=== PATIENT | male | born 1950 | race African-American/Black ===

== ENCOUNTER 2021-12-19 09:53 | Inpatient (IN) | payer MEDICARE, MEDICAID ==
[~2021-12-19] VITALS: Ht 188 cm; Wt 143.8 kg
[~2021-12-19 09:53] MED LIST: ATOR10TA69 PO; GABA-290 PO; GLIP5TAB12 MT; LOSA1TAB37 PO; MOBI7 MT; OMEP20CA14 PO; PIOG30TA70 PO
[2021-12-19] MEDS ORDERED: ONDANSETRON HCL 4MG/2ML INJ IV STA (10:29)
[2021-12-19] MEDS ORDERED: MORPHINE SULFATE 4 MG/ML CPJ (NOT FOR IM USE) IV STA (10:29)
[2021-12-19 11:33] LABS: BASOPHILS % 0.6 % (0.0-2.0); EOSINOPHILS % 1.4 % (0.0-5.0); LYMPHOCYTES % 17.4 % (20.0-50.0); MEAN CORPUSCULAR HEMOGLOBIN 30.8 pg (28.0-32.0); MEAN CORPUSCULAR VOLUME 92.1 fL (80.0-94.0); MEAN PLATELET VOLUME 7.9 fl (7.4-10.4); MONOCYTES % 9.8 % (2.0-8.0); NEUTROPHILS % 70.8 % (40.0-76.0); PLATELET 282 x1000/uL (130-400); RED BLOOD CELL COUNT 4.88 mill/uL (4.7-6.1); RED CELL DISTRIBUTION WIDTH 14.1 % (11.6-14.6)
[2021-12-19 11:44] LABS: CHLORIDE 99 mEq/L (98-107)
[2021-12-19 12:05] LABS: CLARITY URINE CLEAR (CLEAR); COLOR URINE YELLOW (YELLOW); KETONES URINE NEGATIVE (NEGATIVE); LEUKOCYTE ESTERASE URINE 1+ (NEGATIVE); NITRITE URINE NEGATIVE (NEGATIVE); OCCULT BLOOD URINE NEGATIVE (NEGATIVE); PH URINE 7.5 (4.5-8.0); PROTEIN URINE NEGATIVE (NEGATIVE)
[2021-12-19] MEDS ORDERED: MORPHINE SULFATE 4 MG/ML CPJ (NOT FOR IM USE) IV ONE (14:00)
[2021-12-19] MEDS ORDERED: ACETAMINOPHEN 325MG TABLET PO PRN (18:30)
[2021-12-19] MEDS ORDERED: ONDANSETRON HCL 4MG/2ML INJ IV PRN (18:30)
[2021-12-19] MEDS ORDERED: TRAMADOL 50MG TABLET PO PRN (18:30)
[2021-12-19] MEDS ORDERED: MAGNESIUM/ALUMINUM HYDROXIDE/SIMETHICONE 30ML UDC PO PRN (18:30)
[2021-12-19] MEDS ORDERED: DOCUSATE SODIUM 100MG CAPSULE PO PRN (18:30)
[2021-12-19] MEDS ORDERED: GUAIFENESIN 200MG/10ML SUGAR FREE UDC PO PRN (18:30)
[2021-12-19] MEDS: PANTOPRAZOLE SODIUM 40 MG/VIAL IV SCH (19:05)
[2021-12-19] MEDS: DEXT 5%/0.45% NACL 1000ML 1,000 ML IV SCH (19:06)
[2021-12-19 21:15] VITALS: BP 104/92
[2021-12-19] MEDS ORDERED: SODIUM POLYSTYRENE SULFONATE 15 G/60 ML BOT PO NR (23:00)
[2021-12-19] MEDS ORDERED: NALOXONE HCL 0.4MG/ML VIAL IV PRN (23:15)
[2021-12-19] MEDS: ZOLPIDEM TARTRATE 5MG TABLET PO PRN (23:57)
[2021-12-19] MEDS: ENOXAPARIN 40MG/0.4ML SYR SUBCUT SCH (23:58)
[2021-12-20] VITALS: BP_SYST 104; BP_SYST 115; BP_DIAS 92; BP_DIAS 93
[2021-12-20 04:00] VITALS: BP 117/75
[2021-12-20] MEDS: HYDROMORPHONE HCL/PF 2MG/ML CPJ IV PRN ×3 (04:55→15:06)
[2021-12-20] MEDS ORDERED: PNEUMOCOCCAL 23-VAL P-SAC VAC 0.5 ML IM ONE (05:30)
[2021-12-20 07:02] LABS: BASOPHILS % 1.2 % (0.0-2.0); EOSINOPHILS % 4.2 % (0.0-5.0); HEMATOCRIT. 41.6 % (42.0-52.0); HEMOGLOBIN. 13.8 g/dL (14.0-18.0); LYMPHOCYTES % 21.3 % (20.0-50.0); MEAN CORPUSCULAR HEMOGLOBIN 30.8 pg (28.0-32.0); MEAN CORPUSCULAR VOLUME 92.4 fL (80.0-94.0); MEAN PLATELET VOLUME 7.9 fl (7.4-10.4); NEUTROPHILS % 60.3 % (40.0-76.0); PLATELET 249 x1000/uL (130-400); RED CELL DISTRIBUTION WIDTH 13.7 % (11.6-14.6)
[2021-12-20 07:03] LABS: CHLORIDE 98 mEq/L (98-107)
[2021-12-20 07:14] LABS: HDL CHOLESTEROL 46 mg/dL (40-59); LDL CHOLESTEROL 39 mg/dL (5-100)
[2021-12-20] MEDS: BLOOD SUGAR DIAGNOSTIC STRIP TEST SCH ×4 (07:27→21:42)
[2021-12-20 08:00] VITALS: BP 133/79
[2021-12-20] MEDS ORDERED: POTASSIUM CHLORIDE 20MEQ TABLET SR PO NR (08:15)
[2021-12-20] MEDS: PANTOPRAZOLE SODIUM 40 MG/VIAL IV SCH (08:37)
[2021-12-20] MEDS: ENOXAPARIN 40MG/0.4ML SYR SUBCUT SCH ×2 (08:38→21:42)
[2021-12-20] MEDS: AMLODIPINE 10MG TABLET PO SCH (08:39)
[2021-12-20] MEDS: DEXT 5%/0.45% NACL 1000ML 1,000 ML IV SCH (11:21)
[2021-12-20 12:00] VITALS: BP 125/77
[2021-12-20 16:00] VITALS: BP 109/71
[2021-12-20 20:00] VITALS: BP 129/81
[2021-12-20] MEDS: ZOLPIDEM TARTRATE 5MG TABLET PO PRN (21:42)
[2021-12-21] VITALS: BP 121/84
[2021-12-21] MEDS: DEXT 5%/0.45% NACL 1000ML 1,000 ML IV SCH (03:37)
[2021-12-21 04:00] VITALS: BP 103/64
[2021-12-21] MEDS: HYDROMORPHONE HCL/PF 2MG/ML CPJ IV PRN ×2 (06:24→11:42)
[2021-12-21 06:29] LABS: BASOPHILS % 0.4 % (0.0-2.0); EOSINOPHILS % 2.8 % (0.0-5.0); HEMATOCRIT. 42.4 % (42.0-52.0); HEMOGLOBIN. 14.1 g/dL (14.0-18.0); LYMPHOCYTES % 14.8 % (20.0-50.0); MEAN CORPUSCULAR VOLUME 92.8 fL (80.0-94.0); MONOCYTES % 11.1 % (2.0-8.0); NEUTROPHILS % 70.9 % (40.0-76.0); PLATELET 225 x1000/uL (130-400); RED BLOOD CELL COUNT 4.57 mill/uL (4.7-6.1); RED CELL DISTRIBUTION WIDTH 13.7 % (11.6-14.6)
[2021-12-21 06:32] LABS: CHLORIDE 100 mEq/L (98-107)
[2021-12-21] MEDS: BLOOD SUGAR DIAGNOSTIC STRIP TEST SCH ×2 (07:22→13:03)
[2021-12-21 08:08] VITALS: BP 143/84
[2021-12-21] MEDS: ENOXAPARIN 40MG/0.4ML SYR SUBCUT SCH (09:41)
[2021-12-21] MEDS: PANTOPRAZOLE SODIUM 40 MG/VIAL IV SCH (09:41)
[2021-12-21] MEDS: AMLODIPINE 10MG TABLET PO SCH (09:41)
[2021-12-21 12:00] VITALS: BP 139/67
[2021-12-21] MEDS ORDERED: DEXTROSE 50% WATER 50ML SYRINGE IV PRN (13:15)
[2021-12-21 14:39] VITALS: BP 130/83
[2021-12-21] MEDS ORDERED: INSULIN LISPRO 100 UNITS/ML SUBCUT SCH (17:50)
== END 2021-12-21 15:45 | disposition home health service (06) | DRG 445 ==
LOC: ER 09:53 → 6WST 17:07 → EDBEDREQTM 17:32 → EDBEDREQ 17:32 → ENRESERV 20:03
PROVIDERS: ADMIT Hospitalist; ATTEND Hospitalist
DX: K80.20 Calculus of gallbladder without cholecystitis without obstruction (principal); I69.354 Hemiplegia and hemiparesis following cerebral infarction affecting left non-dominant side; E11.9 Type 2 diabetes mellitus without complications; I25.10 Atherosclerotic heart disease of native coronary artery without angina pectoris; I48.91 Unspecified atrial fibrillation; E78.5 Hyperlipidemia, unspecified; I10 Essential (primary) hypertension; E78.00 Pure hypercholesterolemia, unspecified; Z90.49 Acquired absence of other specified parts of digestive tract; Z79.899 Other long term (current) drug therapy; Z87.442 Personal history of urinary calculi; Z86.73 Personal history of transient ischemic attack (TIA), and cerebral infarction without residual deficits; Z20.822 Contact with and (suspected) exposure to COVID-19; Z79.84 Long term (current) use of oral hypoglycemic drugs
CPT/HCPCS: 36415; 71045; 74176; 76705; 80048; 80053; 80061; 81003; 82962; 83605; 83880; 84484; 85025; 87426; 93005; 93970; 99285; C9113; J1170; J1650; J2270; J2405

== ENCOUNTER 2022-01-30 08:12 | Inpatient (IN) | payer MEDICARE, MEDICAID ==
[~2022-01-30] VITALS: Ht 185.4 cm; Wt 127.1 kg
[2022-01-30 09:37] LABS: BASOPHILS % 0.9 % (0.0-2.0); EOSINOPHILS % 1.8 % (0.0-5.0); HEMATOCRIT. 42.3 % (42.0-52.0); HEMOGLOBIN. 13.7 g/dL (14.0-18.0); LYMPHOCYTES % 14.1 % (20.0-50.0); MEAN CORPUSCULAR HEMOGLOBIN 30.7 pg (28.0-32.0); MEAN CORPUSCULAR VOLUME 94.7 fL (80.0-94.0); MEAN PLATELET VOLUME 7.7 fl (7.4-10.4); MONOCYTES % 12.2 % (2.0-8.0); PLATELET 238 x1000/uL (130-400); RED BLOOD CELL COUNT 4.47 mill/uL (4.7-6.1); RED CELL DISTRIBUTION WIDTH 15.1 % (11.6-14.6)
[2022-01-30 09:38] LABS: CHLORIDE 102 mEq/L (98-107)
[2022-01-30 09:56] LABS: CLARITY URINE CLEAR (CLEAR); COLOR URINE DARK YELLOW (YELLOW); KETONES URINE TRACE (NEGATIVE); LEUKOCYTE ESTERASE URINE 3+ (NEGATIVE); NITRITE URINE NEGATIVE (NEGATIVE); OCCULT BLOOD URINE NEGATIVE (NEGATIVE); PROTEIN URINE TRACE (NEGATIVE); SPECIFIC GRAVITY URINE 1.023 (1.005-1.030)
[2022-01-30] MEDS ORDERED: METRONIDAZOLE 500 MG PREMIX 100 ML IV ONE (10:45)
[2022-01-30] MEDS ORDERED: MORPHINE SULFATE 4 MG/ML CPJ (NOT FOR IM USE) IV ONE (10:45)
[2022-01-30] MEDS ORDERED: LEVOFLOXACIN 750MG PREMIX 150 ML IV ONE (10:45)
[2022-01-30 10:57] LABS: INR 1.1; PROTHROMBIN TIME 11.4 sec (9.6-11.0)
[2022-01-30] MEDS ORDERED: LORAZEPAM 0.5MG TABLET PO PRN (14:00)
[2022-01-30] MEDS ORDERED: DOCUSATE SODIUM 100MG CAPSULE PO PRN (14:00)
[2022-01-30] MEDS ORDERED: IPRATROPIUM/ALBUTEROL 0.5-3(2.5)MG/3ML NEB HHN PRN (14:00)
[2022-01-30] MEDS ORDERED: ACETAMINOPHEN 325MG TABLET PO PRN ×2 (14:00)
[2022-01-30] MEDS ORDERED: GUAIFENESIN 200MG/10ML SUGAR FREE UDC PO PRN (14:00)
[2022-01-30] MEDS ORDERED: ONDANSETRON HCL 4MG/2ML INJ IV PRN (14:00)
[2022-01-30] MEDS ORDERED: NALOXONE HCL 0.4MG/ML VIAL IV PRN (14:15)
[2022-01-30] MEDS ORDERED: CEFTRIAXONE 1 G PREMIX 50 ML IV SCH (16:00)
[2022-01-30] MEDS: HYDROCODONE/ACETAMINOPHEN 5/325MG TABLET PO PRN (17:29)
[2022-01-30] MEDS: ENOXAPARIN 30MG/0.3ML SYR SUBCUT SCH (17:29)
[2022-01-30] MEDS: PANTOPRAZOLE SODIUM 40 MG/VIAL IV SCH (17:35)
[2022-01-30 18:59] LABS: TOTAL IRON BINDING CAPACITY 384 ug/dL (250-450)
[2022-01-30 19:27] LABS: FOLIC ACID (FOLATE) SERUM >20 ng/mL ng/mL (>5.38); VITAMIN B12 SERUM 330 pg/mL (211-911)
[2022-01-30 19:41] LABS: FERRITIN 106 ng/mL (22-322)
[2022-01-30 23:51] VITALS: BP 108/73
[2022-01-31] VITALS: BP 101/67
[2022-01-31 04:00] VITALS: BP 108/73
[2022-01-31] MEDS: ENOXAPARIN 30MG/0.3ML SYR SUBCUT SCH ×2 (06:59→18:29)
[2022-01-31 07:23] LABS: CHLORIDE 101 mEq/L (98-107)
[2022-01-31 07:40] LABS: CREATINE KINASE 111 IU/L (39-308); HDL CHOLESTEROL 55 mg/dL (40-59); LDL CHOLESTEROL 59 mg/dL (5-100)
[2022-01-31 07:47] LABS: BASOPHILS % 0.8 % (0.0-2.0); EOSINOPHILS % 2.6 % (0.0-5.0); HEMATOCRIT. 41.5 % (42.0-52.0); LYMPHOCYTES % 18.9 % (20.0-50.0); MEAN CORPUSCULAR HEMOGLOBIN 31.4 pg (28.0-32.0); MEAN CORPUSCULAR VOLUME 93.3 fL (80.0-94.0); MEAN PLATELET VOLUME 7.8 fl (7.4-10.4); MONOCYTES % 12.2 % (2.0-8.0); NEUTROPHILS % 65.5 % (40.0-76.0); PLATELET 240 x1000/uL (130-400); RED BLOOD CELL COUNT 4.45 mill/uL (4.7-6.1); RED CELL DISTRIBUTION WIDTH 14.8 % (11.6-14.6)
[2022-01-31 08:00] VITALS: BP 112/67
[2022-01-31] MEDS: PANTOPRAZOLE SODIUM 40 MG/VIAL IV SCH (10:18)
[2022-01-31] MEDS: HYDROCODONE/ACETAMINOPHEN 5/325MG TABLET PO PRN (10:18)
[2022-01-31 12:00] VITALS: BP 116/70
[2022-01-31] MEDS ORDERED: LEVOFLOXACIN 500MG PREMIX 100 ML IV SCH (14:00)
[2022-01-31] MEDS ORDERED: METRONIDAZOLE 500 MG PREMIX 100 ML IV SCH (15:00)
[2022-01-31 16:00] VITALS: BP 123/78
[2022-01-31] MEDS ORDERED: CEFTRIAXONE 1,000 MG in DEXTROSE 5% WATER 50 ML IV SCH (16:00)
[2022-01-31] MEDS ORDERED: ZOLPIDEM TARTRATE 5MG TABLET PO PRN (18:45)
[2022-01-31 20:43] VITALS: BP_SYST 145; BP_SYST 162; BP_DIAS 87; BP_DIAS 99
[2022-02-01 00:29] VITALS: BP_SYST 125; BP_SYST 163; BP_DIAS 110; BP_DIAS 85
[2022-02-01 04:00] VITALS: BP 149/89
[2022-02-01] MEDS: ENOXAPARIN 30MG/0.3ML SYR SUBCUT SCH (05:50)
[2022-02-01 06:04] LABS: BASOPHILS % 0.5 % (0.0-2.0); EOSINOPHILS % 2.8 % (0.0-5.0); HEMATOCRIT. 42.2 % (42.0-52.0); LYMPHOCYTES % 20.5 % (20.0-50.0); MEAN CORPUSCULAR HEMOGLOBIN 30.9 pg (28.0-32.0); MEAN CORPUSCULAR VOLUME 92.9 fL (80.0-94.0); MEAN PLATELET VOLUME 7.7 fl (7.4-10.4); MONOCYTES % 14.2 % (2.0-8.0); PLATELET 241 x1000/uL (130-400); RED BLOOD CELL COUNT 4.54 mill/uL (4.7-6.1); RED CELL DISTRIBUTION WIDTH 14.7 % (11.6-14.6)
[2022-02-01 06:27] LABS: CHLORIDE 103 mEq/L (98-107)
[2022-02-01 08:00] VITALS: BP 131/85
[2022-02-01] MEDS: PANTOPRAZOLE SODIUM 40 MG/VIAL IV SCH (09:33)
[2022-02-01] MEDS: HYDROCODONE/ACETAMINOPHEN 5/325MG TABLET PO PRN (09:35)
[2022-02-01 12:00] VITALS: BP 125/70
[2022-02-01] MEDS: DOCUSATE SODIUM 250MG CAPSULE PO SCH (14:45)
[2022-02-01] MEDS ORDERED: LACTULOSE 20G/30ML UDC PO NR (14:45)
[2022-02-01 16:00] VITALS: BP 143/8
[2022-02-01 20:43] VITALS: BP 137/71
[2022-02-02 00:49] VITALS: BP 124/85
[2022-02-02] MEDS: HYDROCODONE/ACETAMINOPHEN 5/325MG TABLET PO PRN ×2 (01:41→06:50)
[2022-02-02 04:00] VITALS: BP 115/76
[2022-02-02] MEDS: ENOXAPARIN 30MG/0.3ML SYR SUBCUT SCH (05:08)
[2022-02-02 08:00] VITALS: BP 138/79
[2022-02-02 08:17] LABS: BASOPHILS % 0.7 % (0.0-2.0); HEMATOCRIT. 39.6 % (42.0-52.0); HEMOGLOBIN. 13.1 g/dL (14.0-18.0); LYMPHOCYTES % 23.9 % (20.0-50.0); MEAN CORPUSCULAR HEMOGLOBIN 30.9 pg (28.0-32.0); MEAN CORPUSCULAR VOLUME 93.5 fL (80.0-94.0); MEAN PLATELET VOLUME 7.9 fl (7.4-10.4); MONOCYTES % 10.1 % (2.0-8.0); NEUTROPHILS % 61.3 % (40.0-76.0); PLATELET 240 x1000/uL (130-400); RED BLOOD CELL COUNT 4.23 mill/uL (4.7-6.1); RED CELL DISTRIBUTION WIDTH 14.3 % (11.6-14.6)
[2022-02-02 08:28] LABS: CHLORIDE 102 mEq/L (98-107)
[2022-02-02] MEDS: DOCUSATE SODIUM 250MG CAPSULE PO SCH (09:00)
[2022-02-02 12:00] VITALS: BP 125/75
[2022-02-02 13:54] VITALS: BP 125/75
[2022-02-02] MEDS ORDERED: LEVO500T90 MT (17:32)
== END 2022-02-02 15:40 | disposition home health service (06) | DRG 445 ==
LOC: ER 08:35 → EDBEDREQTM 12:25 → EDBEDREQ 12:25 → 7WST 12:33 → ENRESERV 23:01
PROVIDERS: ADMIT Family Medicine Adult Medicine; ATTEND Family Medicine Adult Medicine
DX: K80.00 Calculus of gallbladder with acute cholecystitis without obstruction (principal); E44.1 Mild protein-calorie malnutrition; N39.0 Urinary tract infection, site not specified; K59.00 Constipation, unspecified; I48.91 Unspecified atrial fibrillation; Q43.0 Meckel's diverticulum (displaced) (hypertrophic); I10 Essential (primary) hypertension; K76.0 Fatty (change of) liver, not elsewhere classified; K86.89 Other specified diseases of pancreas; E11.9 Type 2 diabetes mellitus without complications; I25.10 Atherosclerotic heart disease of native coronary artery without angina pectoris; E78.00 Pure hypercholesterolemia, unspecified; E78.5 Hyperlipidemia, unspecified; R16.0 Hepatomegaly, not elsewhere classified; R74.01 Elevation of levels of liver transaminase levels; Z79.899 Other long term (current) drug therapy; Z86.73 Personal history of transient ischemic attack (TIA), and cerebral infarction without residual deficits; Z90.49 Acquired absence of other specified parts of digestive tract; Z87.442 Personal history of urinary calculi; Z68.37 Body mass index [BMI] 37.0-37.9, adult
CPT/HCPCS: 36415; 71045; 74176; 76705; 80048; 80053; 80061; 80076; 81003; 82248; 82550; 82607; 82728; 82746; 82962; 83540; 83550; 84443; 84484; 85025; 85044; 87077; 87186; 93005; 97162; 97166; 99285; C9113; J0696; J1650; J1956; J2270; J3490; J7060

== ENCOUNTER 2022-04-19 13:06 | Emergency (ER) | payer MEDICARE, MEDICAID ==
[~2022-04-19] VITALS: Ht 188 cm; Wt 136.0 kg
[~2022-04-19 13:06] MED LIST changes: +LEVO-65 MT
[2022-04-19] MEDS ORDERED: HYDROCODONE/ACETAMINOPHEN 5/325MG TABLET PO ONE (13:15)
[2022-04-19] MEDS ORDERED: ONDANSETRON 4MG ODT PO ONE (13:15)
[2022-04-19] MEDS ORDERED: HYDROCODONE/ACETAMINOPHEN 5/325MG TABLET PO SCH (16:25)
[2022-04-19 18:25] VITALS: BP 145/91
== END 2022-04-19 18:28 | disposition home or self-care (01) ==
LOC: ER 13:06
DX: S89.82XA Other specified injuries of left lower leg, initial encounter (principal); I10 Essential (primary) hypertension; E11.9 Type 2 diabetes mellitus without complications; E78.00 Pure hypercholesterolemia, unspecified; Z90.49 Acquired absence of other specified parts of digestive tract; I48.91 Unspecified atrial fibrillation; Z86.73 Personal history of transient ischemic attack (TIA), and cerebral infarction without residual deficits; Z79.01 Long term (current) use of anticoagulants; W01.0XXA Fall on same level from slipping, tripping and stumbling without subsequent striking against object, initial encounter; Y93.89 Activity, other specified; Y92.018 Other place in single-family (private) house as the place of occurrence of the external cause
CPT/HCPCS: 70450; 72192; 73502; 73552; 73562; 73590; 93005; 99285; Q0162

== ENCOUNTER 2022-06-17 08:58 | Inpatient (IN) | payer MEDICARE, MEDICAID ==
[~2022-06-17] VITALS: Ht 188 cm; Wt 153.8 kg
[2022-06-17] MEDS ORDERED: HYDROCODONE/ACETAMINOPHEN 5/325MG TABLET PO SCH (09:30)
[2022-06-17 11:56] LABS: BASOPHILS % 0.7 % (0.0-2.0); EOSINOPHILS % 1.9 % (0.0-5.0); HEMATOCRIT. 40.9 % (42.0-52.0); HEMOGLOBIN. 13.6 g/dL (14.0-18.0); LYMPHOCYTES % 11.9 % (20.0-50.0); MEAN CORPUSCULAR HEMOGLOBIN 31.1 pg (28.0-32.0); MEAN CORPUSCULAR VOLUME 93.3 fL (80.0-94.0); MEAN PLATELET VOLUME 7.5 fl (7.4-10.4); MONOCYTES % 8.8 % (2.0-8.0); NEUTROPHILS % 76.7 % (40.0-76.0); PLATELET 308 x1000/uL (130-400); RED BLOOD CELL COUNT 4.38 mill/uL (4.7-6.1); RED CELL DISTRIBUTION WIDTH 13.8 % (11.6-14.6)
[2022-06-17 12:09] LABS: CHLORIDE 103 mEq/L (98-107)
[2022-06-17 20:00] VITALS: BP_SYST 114; BP_SYST 139; BP_DIAS 69; BP_DIAS 91
[2022-06-17] MEDS ORDERED: ONDANSETRON HCL 4MG/2ML INJ IV PRN (20:15)
[2022-06-17] MEDS ORDERED: IPRATROPIUM/ALBUTEROL 0.5-3(2.5)MG/3ML NEB HHN PRN (20:15)
[2022-06-17] MEDS ORDERED: ACETAMINOPHEN 325MG TABLET PO PRN ×2 (20:15)
[2022-06-17] MEDS ORDERED: DOCUSATE SODIUM 100MG CAPSULE PO PRN (20:15)
[2022-06-17] MEDS ORDERED: CLONIDINE 0.1MG TABLET PO PRN (20:15)
[2022-06-17] MEDS ORDERED: MORPHINE SULFATE 2 MG/ML CPJ (NOT FOR IM USE) IV PRN (20:15)
[2022-06-17] MEDS ORDERED: LORAZEPAM 0.5MG TABLET PO PRN (20:15)
[2022-06-17] MEDS ORDERED: NALOXONE HCL 0.4MG/ML VIAL IV PRN (20:30)
[2022-06-17] MEDS ORDERED: *PATIENT'S OWN MEDICATION STORAGE XX SCH (23:15)
[2022-06-18] VITALS: BP 125/77
[2022-06-18 04:00] VITALS: BP 126/85
[2022-06-18 05:41] LABS: BASOPHILS % 0.7 % (0.0-2.0); EOSINOPHILS % 2.8 % (0.0-5.0); HEMOGLOBIN. 15.3 g/dL (14.0-18.0); LYMPHOCYTES % 13.8 % (20.0-50.0); MEAN CORPUSCULAR HEMOGLOBIN 31.4 pg (28.0-32.0); MEAN CORPUSCULAR VOLUME 92.5 fL (80.0-94.0); MEAN PLATELET VOLUME 8.1 fl (7.4-10.4); NEUTROPHILS % 72.7 % (40.0-76.0); PLATELET 345 x1000/uL (130-400); RED BLOOD CELL COUNT 4.86 mill/uL (4.7-6.1); RED CELL DISTRIBUTION WIDTH 13.8 % (11.6-14.6)
[2022-06-18 06:17] LABS: CHLORIDE 104 mEq/L (98-107)
[2022-06-18 08:00] VITALS: BP 147/84
[2022-06-18 12:00] VITALS: BP 147/92
[2022-06-18] MEDS: ATORVASTATIN CALCIUM 10MG TABLET PO SCH (12:51)
[2022-06-18] MEDS: OMEPRAZOLE 20MG CAPSULE EXTENDED RELEASE PO SCH (12:51)
[2022-06-18] MEDS: HYDROCHLOROTHIAZIDE 25MG TABLET PO SCH (12:51)
[2022-06-18] MEDS: GLIPIZIDE 5MG TABLET PO SCH ×2 (12:51→18:04)
[2022-06-18] MEDS: GABAPENTIN 300MG CAPSULE PO SCH ×2 (13:29→21:53)
[2022-06-18 16:00] VITALS: BP 134/82
[2022-06-18] MEDS: HYDROCODONE/ACETAMINOPHEN 10/325MG TABLET PO PRN ×2 (18:07→21:53)
[2022-06-18 20:00] VITALS: BP 125/86
[2022-06-19] VITALS: BP 127/76
[2022-06-19 04:00] VITALS: BP 141/83
[2022-06-19] MEDS: OMEPRAZOLE 20MG CAPSULE EXTENDED RELEASE PO SCH (06:48)
[2022-06-19] MEDS: GABAPENTIN 300MG CAPSULE PO SCH ×3 (07:50→22:10)
[2022-06-19 08:00] VITALS: BP 122/70
[2022-06-19] MEDS: LOSARTAN POTASSIUM 100 MG TABLET PO SCH (09:07)
[2022-06-19] MEDS: GLIPIZIDE 5MG TABLET PO SCH ×2 (09:07→17:42)
[2022-06-19] MEDS: HYDROCHLOROTHIAZIDE 25MG TABLET PO SCH (09:07)
[2022-06-19] MEDS: ATORVASTATIN CALCIUM 10MG TABLET PO SCH (09:07)
[2022-06-19] MEDS: HYDROCODONE/ACETAMINOPHEN 10/325MG TABLET PO PRN (09:14)
[2022-06-19 11:59] VITALS: BP 122/68
[2022-06-19 16:00] VITALS: BP 91/55
[2022-06-19 20:00] VITALS: BP 99/52
[2022-06-19] MEDS: HYDROCODONE/ACETAMINOPHEN 5/325MG TABLET PO PRN (20:20)
[2022-06-19] MEDS: FAMOTIDINE 20MG TABLET PO SCH (22:10)
[2022-06-20] MEDS: GABAPENTIN 300MG CAPSULE PO SCH ×3 (06:39→21:18)
[2022-06-20] MEDS: HYDROCODONE/ACETAMINOPHEN 10/325MG TABLET PO PRN (06:42)
[2022-06-20 08:00] VITALS: BP 112/71
[2022-06-20] MEDS: GLIPIZIDE 5MG TABLET PO SCH ×2 (08:35→16:37)
[2022-06-20] MEDS: FAMOTIDINE 20MG TABLET PO SCH ×2 (08:35→21:18)
[2022-06-20] MEDS: LOSARTAN POTASSIUM 100 MG TABLET PO SCH (08:35)
[2022-06-20] MEDS: ATORVASTATIN CALCIUM 10MG TABLET PO SCH (08:35)
[2022-06-20] MEDS: HYDROCHLOROTHIAZIDE 25MG TABLET PO SCH (08:35)
[2022-06-20 11:59] VITALS: BP 103/57
[2022-06-20] MEDS: ASPIRIN 81MG TABLET PO SCH (12:18)
[2022-06-20 16:00] VITALS: BP 100/56
[2022-06-20 20:00] VITALS: BP 114/69
[2022-06-20] MEDS: HYDROCODONE/ACETAMINOPHEN 5/325MG TABLET PO PRN (21:17)
[2022-06-21] VITALS: BP 135/70
[2022-06-21 04:00] VITALS: BP 135/70
[2022-06-21 08:00] VITALS: BP 140/80
[2022-06-21] MEDS: ATORVASTATIN CALCIUM 10MG TABLET PO SCH (08:44)
[2022-06-21] MEDS: HYDROCHLOROTHIAZIDE 25MG TABLET PO SCH (08:44)
[2022-06-21] MEDS: ASPIRIN 81MG TABLET PO SCH (08:44)
[2022-06-21] MEDS: GLIPIZIDE 5MG TABLET PO SCH ×2 (08:44→18:02)
[2022-06-21] MEDS: FAMOTIDINE 20MG TABLET PO SCH ×2 (08:44→22:25)
[2022-06-21] MEDS: LOSARTAN POTASSIUM 100 MG TABLET PO SCH (08:44)
[2022-06-21] MEDS: HYDROCODONE/ACETAMINOPHEN 10/325MG TABLET PO PRN ×2 (08:50→15:41)
[2022-06-21 12:00] VITALS: BP 106/71
[2022-06-21] MEDS ORDERED: ALBUTEROL (0.083%) 2.5MG/3ML NEB HHN PRN (13:15)
[2022-06-21] MEDS ORDERED: IPRATROPIUM BROMIDE (0.02%) 0.5MG/2.5ML NEB HHN PRN (13:15)
[2022-06-21] MEDS: GABAPENTIN 300MG CAPSULE PO SCH (14:48)
[2022-06-21 15:52] VITALS: BP 123/83
[2022-06-22] VITALS: BP 122/71
[2022-06-22 06:23] LABS: CHLORIDE 100 mEq/L (98-107)
[2022-06-22 06:31] LABS: EOSINOPHILS % 4.7 % (0.0-5.0); HEMATOCRIT. 38.7 % (42.0-52.0); HEMOGLOBIN. 13.1 g/dL (14.0-18.0); LYMPHOCYTES % 18.6 % (20.0-50.0); MEAN CORPUSCULAR HEMOGLOBIN 31.2 pg (28.0-32.0); MEAN PLATELET VOLUME 7.8 fl (7.4-10.4); MONOCYTES % 9.7 % (2.0-8.0); PLATELET 355 x1000/uL (130-400); RED BLOOD CELL COUNT 4.21 mill/uL (4.7-6.1); RED CELL DISTRIBUTION WIDTH 13.6 % (11.6-14.6)
[2022-06-22] MEDS: GABAPENTIN 300MG CAPSULE PO SCH ×2 (06:39→06:46)
[2022-06-22 08:00] VITALS: BP 105/65
[2022-06-22] MEDS: ATORVASTATIN CALCIUM 10MG TABLET PO SCH (09:59)
[2022-06-22] MEDS: LOSARTAN POTASSIUM 100 MG TABLET PO SCH (09:59)
[2022-06-22] MEDS: ASPIRIN 81MG TABLET PO SCH (09:59)
[2022-06-22] MEDS: HYDROCHLOROTHIAZIDE 25MG TABLET PO SCH (10:00)
[2022-06-22] MEDS: FAMOTIDINE 20MG TABLET PO SCH (10:00)
[2022-06-22] MEDS: GLIPIZIDE 5MG TABLET PO SCH (10:00)
[2022-06-22] MEDS ORDERED: GABAPENTIN 300MG CAPSULE PO SCH (14:00)
[2022-06-22] MEDS ORDERED: GLIPIZIDE 5MG TABLET PO SCH (17:00)
[2022-06-22] MEDS ORDERED: ATORVASTATIN CALCIUM 10MG TABLET PO SCH (21:00)
[2022-06-22] MEDS ORDERED: FAMOTIDINE 20MG TABLET PO SCH (21:00)
[2022-06-23] MEDS ORDERED: LOSARTAN POTASSIUM 100 MG TABLET PO SCH (09:00)
[2022-06-23] MEDS ORDERED: ASPIRIN 81MG TABLET PO SCH (09:00)
[2022-06-23] MEDS ORDERED: HYDROCHLOROTHIAZIDE 25MG TABLET PO SCH (09:00)
[2022-06-23] MEDS ORDERED: SERT20OR6 PO (11:06)
== END 2022-06-22 10:17 | DRG 948 ==
LOC: ER 09:10 → 6EST 15:22 → EDBEDREQTM 15:29 → EDBEDREQ 15:29 → ENRESERV 15:57
PROVIDERS: ADMIT Internal Medicine; ATTEND Internal Medicine
PROC: 2W3QX1Z Immobilization of Right Lower Leg using Splint (ICD-10-PCS; principal; 2022-06-17)
DX: G89.18 Other acute postprocedural pain (principal); Z68.41 Body mass index [BMI] 40.0-44.9, adult; I69.354 Hemiplegia and hemiparesis following cerebral infarction affecting left non-dominant side; M25.571 Pain in right ankle and joints of right foot; E78.00 Pure hypercholesterolemia, unspecified; E66.01 Morbid (severe) obesity due to excess calories; I48.0 Paroxysmal atrial fibrillation; I25.10 Atherosclerotic heart disease of native coronary artery without angina pectoris; I10 Essential (primary) hypertension; E11.42 Type 2 diabetes mellitus with diabetic polyneuropathy; R26.9 Unspecified abnormalities of gait and mobility; H54.7 Unspecified visual loss; Z90.49 Acquired absence of other specified parts of digestive tract; Z87.442 Personal history of urinary calculi; Z82.49 Family history of ischemic heart disease and other diseases of the circulatory system; Z79.84 Long term (current) use of oral hypoglycemic drugs; Z79.82 Long term (current) use of aspirin; I69.322 Dysarthria following cerebral infarction; Z79.899 Other long term (current) drug therapy; S82.451D Displaced comminuted fracture of shaft of right fibula, subsequent encounter for closed fracture with routine healing; S82.301D Unspecified fracture of lower end of right tibia, subsequent encounter for closed fracture with routine healing
CPT/HCPCS: 36415; 73560; 73590; 73610; 80048; 80053; 80061; 85025; 93005; 93880; 93971; 97162; 97166; 97530; 99285; J2270

== ENCOUNTER 2022-06-22 10:22 | Inpatient (IN) | payer MEDICARE, MEDICAID ==
[~2022-06-22] VITALS: Ht 189.2 cm; Wt 150.6 kg
[2022-06-22 10:30] VITALS: BP 132/63
[2022-06-22] MEDS ORDERED: CLONIDINE 0.1MG TABLET PO PRN (10:45)
[2022-06-22] MEDS ORDERED: NALOXONE HCL 0.4MG/ML VIAL IV PRN (11:15)
[2022-06-22] MEDS: GABAPENTIN 300MG CAPSULE PO SCH ×2 (14:24→21:11)
[2022-06-22] MEDS: GLIPIZIDE 5MG TABLET PO SCH (17:23)
[2022-06-22] MEDS: HYDROCODONE/ACETAMINOPHEN 5/325MG TABLET PO PRN (17:27)
[2022-06-22 19:58] VITALS: BP 88/46
[2022-06-22 20:10] VITALS: BP 95/29
[2022-06-22] MEDS: ATORVASTATIN CALCIUM 10MG TABLET PO SCH (21:11)
[2022-06-22] MEDS: FAMOTIDINE 20MG TABLET PO SCH (21:11)
[2022-06-22 23:10] VITALS: BP 120/86
[2022-06-23] MEDS: GABAPENTIN 300MG CAPSULE PO SCH ×3 (05:56→20:56)
[2022-06-23 06:10] LABS: CHLORIDE 99 mEq/L (98-107)
[2022-06-23 06:19] LABS: BASOPHILS % 0.7 % (0.0-2.0); EOSINOPHILS % 4.9 % (0.0-5.0); HEMATOCRIT. 37.6 % (42.0-52.0); HEMOGLOBIN. 12.6 g/dL (14.0-18.0); LYMPHOCYTES % 20.4 % (20.0-50.0); MEAN CORPUSCULAR HEMOGLOBIN 30.6 pg (28.0-32.0); MEAN CORPUSCULAR VOLUME 91.5 fL (80.0-94.0); MEAN PLATELET VOLUME 7.7 fl (7.4-10.4); MONOCYTES % 9.9 % (2.0-8.0); NEUTROPHILS % 64.1 % (40.0-76.0); PLATELET 318 x1000/uL (130-400); RED BLOOD CELL COUNT 4.11 mill/uL (4.7-6.1); RED CELL DISTRIBUTION WIDTH 13.4 % (11.6-14.6)
[2022-06-23 06:24] LABS: TOTAL IRON BINDING CAPACITY 278 ug/dL (250-450)
[2022-06-23 06:36] LABS: FOLIC ACID (FOLATE) SERUM 8.6 ng/mL (>5.38)
[2022-06-23 08:00] VITALS: BP 107/61
[2022-06-23] MEDS: GLIPIZIDE 5MG TABLET PO SCH ×2 (08:41→16:47)
[2022-06-23] MEDS: ASPIRIN 81MG TABLET PO SCH (08:41)
[2022-06-23] MEDS: LOSARTAN POTASSIUM 100 MG TABLET PO SCH (08:41)
[2022-06-23] MEDS: FAMOTIDINE 20MG TABLET PO SCH ×2 (08:41→20:56)
[2022-06-23] MEDS: HYDROCHLOROTHIAZIDE 25MG TABLET PO SCH (08:41)
[2022-06-23] MEDS: HYDROCODONE/ACETAMINOPHEN 5/325MG TABLET PO PRN ×2 (08:46→14:55)
[2022-06-23] MEDS ORDERED: SERT20OR6 PO (11:06)
[2022-06-23 20:00] VITALS: BP 97/56
[2022-06-23] MEDS: ATORVASTATIN CALCIUM 10MG TABLET PO SCH (20:56)
[2022-06-24] MEDS: GABAPENTIN 300MG CAPSULE PO SCH ×3 (06:16→21:20)
[2022-06-24 08:00] VITALS: BP 115/55
[2022-06-24] MEDS: FAMOTIDINE 20MG TABLET PO SCH ×2 (09:04→21:20)
[2022-06-24] MEDS: GLIPIZIDE 5MG TABLET PO SCH ×2 (09:04→16:48)
[2022-06-24] MEDS: ASPIRIN 81MG TABLET PO SCH (09:04)
[2022-06-24] MEDS: LOSARTAN POTASSIUM 100 MG TABLET PO SCH (09:04)
[2022-06-24] MEDS: HYDROCHLOROTHIAZIDE 25MG TABLET PO SCH (09:04)
[2022-06-24] MEDS: BLOOD SUGAR DIAGNOSTIC STRIP TEST SCH ×3 (11:15→21:20)
[2022-06-24] MEDS ORDERED: FURO20TA4 PO (12:21)
[2022-06-24] MEDS ORDERED: ASPI-1497 MT (12:21)
[2022-06-24] MEDS ORDERED: DILT60TA35 PO (12:21)
[2022-06-24] MEDS ORDERED: T4 PO (12:21)
[2022-06-24] MEDS ORDERED: METO100T16 PO (12:21)
[2022-06-24] MEDS ORDERED: ZOLP10TA2 PO (12:21)
[2022-06-24] MEDS ORDERED: RIVA20TA PO (12:21)
[2022-06-24] MEDS ORDERED: POLY15DR31 EACHEYE (12:21)
[2022-06-24] MEDS ORDERED: PIOG30TA10 PO (12:21)
[2022-06-24] MEDS ORDERED: HYDR-459 PO (12:21)
[2022-06-24] MEDS: HYDROCODONE/ACETAMINOPHEN 5/325MG TABLET PO PRN (13:44)
[2022-06-24 20:00] VITALS: BP 108/63
[2022-06-24] MEDS: ATORVASTATIN CALCIUM 10MG TABLET PO SCH (21:20)
[2022-06-25] MEDS: BLOOD SUGAR DIAGNOSTIC STRIP TEST SCH ×4 (06:40→21:00)
[2022-06-25] MEDS: GABAPENTIN 300MG CAPSULE PO SCH ×3 (06:47→21:15)
[2022-06-25 08:00] VITALS: BP 139/61
[2022-06-25] MEDS: ASPIRIN 81MG TABLET PO SCH (08:13)
[2022-06-25] MEDS: GLIPIZIDE 5MG TABLET PO SCH ×2 (08:13→17:08)
[2022-06-25] MEDS: FAMOTIDINE 20MG TABLET PO SCH ×2 (08:13→21:15)
[2022-06-25] MEDS: LOSARTAN POTASSIUM 100 MG TABLET PO SCH (08:14)
[2022-06-25] MEDS: HYDROCHLOROTHIAZIDE 25MG TABLET PO SCH (08:14)
[2022-06-25] MEDS: HYDROCODONE/ACETAMINOPHEN 10/325MG TABLET PO PRN ×2 (17:09→21:16)
[2022-06-25 20:00] VITALS: BP 150/66
[2022-06-25] MEDS: ATORVASTATIN CALCIUM 10MG TABLET PO SCH (21:15)
[2022-06-26] MEDS: HYDROCODONE/ACETAMINOPHEN 10/325MG TABLET PO PRN ×3 (03:24→17:31)
[2022-06-26] MEDS: GABAPENTIN 300MG CAPSULE PO SCH ×3 (06:23→22:00)
[2022-06-26] MEDS: BLOOD SUGAR DIAGNOSTIC STRIP TEST SCH ×4 (06:23→20:36)
[2022-06-26 08:00] VITALS: BP 101/76
[2022-06-26] MEDS: ASPIRIN 81MG TABLET PO SCH (09:13)
[2022-06-26] MEDS: HYDROCHLOROTHIAZIDE 25MG TABLET PO SCH (09:14)
[2022-06-26] MEDS: LOSARTAN POTASSIUM 100 MG TABLET PO SCH (09:14)
[2022-06-26] MEDS: GLIPIZIDE 5MG TABLET PO SCH ×2 (09:14→17:30)
[2022-06-26] MEDS: FAMOTIDINE 20MG TABLET PO SCH ×2 (09:14→20:36)
[2022-06-26 19:10] LABS: 25-HYDROXY VITAMIN D3 8.6 ng/mL (.)
[2022-06-26 20:00] VITALS: BP 97/60
[2022-06-26] MEDS: ATORVASTATIN CALCIUM 10MG TABLET PO SCH (20:36)
[2022-06-27] MEDS: HYDROCODONE/ACETAMINOPHEN 10/325MG TABLET PO PRN ×3 (02:10→12:09)
[2022-06-27] MEDS: BLOOD SUGAR DIAGNOSTIC STRIP TEST SCH ×3 (05:52→21:00)
[2022-06-27] MEDS: GABAPENTIN 300MG CAPSULE PO SCH ×3 (05:52→21:59)
[2022-06-27 08:00] VITALS: BP 108/66
[2022-06-27] MEDS: ASPIRIN 81MG TABLET PO SCH (08:47)
[2022-06-27] MEDS: HYDROCHLOROTHIAZIDE 25MG TABLET PO SCH (08:47)
[2022-06-27] MEDS: FAMOTIDINE 20MG TABLET PO SCH ×2 (08:47→21:59)
[2022-06-27] MEDS: GLIPIZIDE 5MG TABLET PO SCH (08:47)
[2022-06-27] MEDS: LOSARTAN POTASSIUM 100 MG TABLET PO SCH (09:00)
[2022-06-27] MEDS ORDERED: NALOXONE HCL 0.4MG/ML VIAL IV PRN (11:45)
[2022-06-27] MEDS: ERGOCALCIFEROL 50000UNITS CAPSULE PO SCH (15:46)
[2022-06-27] MEDS: CYANOCOBALAMIN 1000MCG/ML VIAL IM SCH (15:46)
[2022-06-27] MEDS: OXYCODONE HCL/ACETAMINOPHEN 5/325MG TABLET PO PRN (15:46)
[2022-06-27 19:53] VITALS: BP 114/59
[2022-06-27] MEDS: ATORVASTATIN CALCIUM 10MG TABLET PO SCH (21:59)
[2022-06-28] MEDS: BLOOD SUGAR DIAGNOSTIC STRIP TEST SCH ×4 (06:30→21:42)
[2022-06-28] MEDS: GABAPENTIN 300MG CAPSULE PO SCH ×3 (06:45→22:55)
[2022-06-28 07:41] LABS: CHLORIDE 102 mEq/L (98-107)
[2022-06-28 07:50] LABS: BASOPHILS % 0.7 % (0.0-2.0); EOSINOPHILS % 7.2 % (0.0-5.0); HEMATOCRIT. 37.3 % (42.0-52.0); HEMOGLOBIN. 12.8 g/dL (14.0-18.0); LYMPHOCYTES % 22.7 % (20.0-50.0); MEAN CORPUSCULAR HEMOGLOBIN 31.4 pg (28.0-32.0); MEAN CORPUSCULAR VOLUME 91.9 fL (80.0-94.0); MEAN PLATELET VOLUME 8.1 fl (7.4-10.4); MONOCYTES % 12.3 % (2.0-8.0); NEUTROPHILS % 57.1 % (40.0-76.0); PLATELET 263 x1000/uL (130-400); RED BLOOD CELL COUNT 4.06 mill/uL (4.7-6.1); RED CELL DISTRIBUTION WIDTH 13.3 % (11.6-14.6)
[2022-06-28 08:00] VITALS: BP 131/78
[2022-06-28] MEDS ORDERED: LACTULOSE 20G/30ML UDC PO PRN (08:30)
[2022-06-28] MEDS ORDERED: NA PHOS,M-B/NA PHOS,DI-BA ENEMA 118ML PR PRN (08:30)
[2022-06-28] MEDS: ASPIRIN 81MG TABLET PO SCH (09:02)
[2022-06-28] MEDS: LOSARTAN POTASSIUM 100 MG TABLET PO SCH (09:02)
[2022-06-28] MEDS: HYDROCHLOROTHIAZIDE 25MG TABLET PO SCH (09:04)
[2022-06-28] MEDS: FAMOTIDINE 20MG TABLET PO SCH ×2 (09:04→21:00)
[2022-06-28] MEDS: CYANOCOBALAMIN 1000MCG/ML VIAL IM SCH (09:04)
[2022-06-28] MEDS: OXYCODONE HCL/ACETAMINOPHEN 5/325MG TABLET PO PRN ×2 (09:04→16:37)
[2022-06-28] MEDS: GLIPIZIDE 5MG TABLET PO SCH (16:34)
[2022-06-28 19:36] VITALS: BP 98/56
[2022-06-28] MEDS: ATORVASTATIN CALCIUM 10MG TABLET PO SCH (21:00)
[2022-06-29] MEDS: GABAPENTIN 300MG CAPSULE PO SCH ×3 (06:45→21:13)
[2022-06-29] MEDS: BLOOD SUGAR DIAGNOSTIC STRIP TEST SCH ×4 (07:04→20:29)
[2022-06-29 08:11] VITALS: BP 106/59
[2022-06-29] MEDS: GLIPIZIDE 5MG TABLET PO SCH ×3 (09:00→18:44)
[2022-06-29] MEDS: ASPIRIN 81MG TABLET PO SCH (10:31)
[2022-06-29] MEDS: LOSARTAN POTASSIUM 100 MG TABLET PO SCH (10:31)
[2022-06-29] MEDS: HYDROCHLOROTHIAZIDE 25MG TABLET PO SCH (10:31)
[2022-06-29] MEDS: FAMOTIDINE 20MG TABLET PO SCH ×2 (10:31→21:00)
[2022-06-29] MEDS: CYANOCOBALAMIN 1000MCG/ML VIAL IM SCH (10:31)
[2022-06-29] MEDS: OXYCODONE HCL/ACETAMINOPHEN 5/325MG TABLET PO PRN (18:50)
[2022-06-29 20:00] VITALS: BP 95/62
[2022-06-29] MEDS: ATORVASTATIN CALCIUM 10MG TABLET PO SCH (21:00)
[2022-06-30] MEDS: OXYCODONE HCL/ACETAMINOPHEN 5/325MG TABLET PO PRN ×4 (01:07→20:37)
[2022-06-30] MEDS: GABAPENTIN 300MG CAPSULE PO SCH ×3 (05:39→21:22)
[2022-06-30] MEDS: BLOOD SUGAR DIAGNOSTIC STRIP TEST SCH ×4 (06:30→21:20)
[2022-06-30 08:00] VITALS: BP 106/68
[2022-06-30] MEDS: FAMOTIDINE 20MG TABLET PO SCH ×2 (10:36→20:36)
[2022-06-30] MEDS: HYDROCHLOROTHIAZIDE 25MG TABLET PO SCH (10:36)
[2022-06-30] MEDS: CYANOCOBALAMIN 1000MCG/ML VIAL IM SCH (10:36)
[2022-06-30] MEDS: GLIPIZIDE 5MG TABLET PO SCH ×2 (10:36→16:52)
[2022-06-30] MEDS: ASPIRIN 81MG TABLET PO SCH (10:36)
[2022-06-30] MEDS: LOSARTAN POTASSIUM 100 MG TABLET PO SCH (10:36)
[2022-06-30 19:51] VITALS: BP 131/76
[2022-06-30] MEDS: ATORVASTATIN CALCIUM 10MG TABLET PO SCH (20:36)
[2022-07-01] MEDS: OXYCODONE HCL/ACETAMINOPHEN 5/325MG TABLET PO PRN ×3 (03:38→21:13)
[2022-07-01] MEDS: BLOOD SUGAR DIAGNOSTIC STRIP TEST SCH ×4 (06:37→21:14)
[2022-07-01] MEDS: GABAPENTIN 300MG CAPSULE PO SCH ×3 (06:37→22:00)
[2022-07-01 09:12] VITALS: BP 136/59
[2022-07-01] MEDS: CYANOCOBALAMIN 1000MCG/ML VIAL IM SCH (09:13)
[2022-07-01] MEDS: GLIPIZIDE 5MG TABLET PO SCH ×2 (09:13→17:33)
[2022-07-01] MEDS: HYDROCHLOROTHIAZIDE 25MG TABLET PO SCH (09:13)
[2022-07-01] MEDS: FAMOTIDINE 20MG TABLET PO SCH ×2 (09:13→21:09)
[2022-07-01] MEDS: LOSARTAN POTASSIUM 100 MG TABLET PO SCH (09:13)
[2022-07-01] MEDS: ASPIRIN 81MG TABLET PO SCH (09:13)
[2022-07-01 20:00] VITALS: BP 115/67
[2022-07-01] MEDS: ATORVASTATIN CALCIUM 10MG TABLET PO SCH (21:09)
[2022-07-02] MEDS: GABAPENTIN 300MG CAPSULE PO SCH ×3 (06:29→21:17)
[2022-07-02] MEDS: OXYCODONE HCL/ACETAMINOPHEN 5/325MG TABLET PO PRN ×2 (07:11→13:21)
[2022-07-02] MEDS: BLOOD SUGAR DIAGNOSTIC STRIP TEST SCH ×4 (07:13→21:00)
[2022-07-02 07:40] LABS: BASOPHILS % 0.8 % (0.0-2.0); EOSINOPHILS % 4.9 % (0.0-5.0); HEMATOCRIT. 39.6 % (42.0-52.0); HEMOGLOBIN. 13.2 g/dL (14.0-18.0); MEAN CORPUSCULAR HEMOGLOBIN 30.6 pg (28.0-32.0); MEAN CORPUSCULAR VOLUME 91.6 fL (80.0-94.0); MEAN PLATELET VOLUME 8.1 fl (7.4-10.4); MONOCYTES % 11.7 % (2.0-8.0); NEUTROPHILS % 60.6 % (40.0-76.0); PLATELET 243 x1000/uL (130-400); RED BLOOD CELL COUNT 4.32 mill/uL (4.7-6.1); RED CELL DISTRIBUTION WIDTH 13.7 % (11.6-14.6)
[2022-07-02 07:45] LABS: CHLORIDE 100 mEq/L (98-107)
[2022-07-02 08:00] VITALS: BP 109/56
[2022-07-02] MEDS: CYANOCOBALAMIN 1000MCG/ML VIAL IM SCH (10:14)
[2022-07-02] MEDS: ASPIRIN 81MG TABLET PO SCH (10:14)
[2022-07-02] MEDS: LOSARTAN POTASSIUM 100 MG TABLET PO SCH (10:14)
[2022-07-02] MEDS: HYDROCHLOROTHIAZIDE 25MG TABLET PO SCH (10:14)
[2022-07-02] MEDS: FAMOTIDINE 20MG TABLET PO SCH ×2 (10:14→21:21)
[2022-07-02] MEDS: GLIPIZIDE 5MG TABLET PO SCH ×2 (10:15→17:00)
[2022-07-02 20:09] VITALS: BP 102/45
[2022-07-02] MEDS: ATORVASTATIN CALCIUM 10MG TABLET PO SCH (21:15)
[2022-07-03] MEDS: GABAPENTIN 300MG CAPSULE PO SCH ×3 (06:00→21:31)
[2022-07-03] MEDS: BLOOD SUGAR DIAGNOSTIC STRIP TEST SCH ×4 (06:30→21:42)
[2022-07-03] MEDS: OXYCODONE HCL/ACETAMINOPHEN 5/325MG TABLET PO PRN ×3 (06:54→21:37)
[2022-07-03 08:00] VITALS: BP 112/77
[2022-07-03] MEDS: CYANOCOBALAMIN 1000MCG/ML VIAL IM SCH (09:25)
[2022-07-03] MEDS: GLIPIZIDE 5MG TABLET PO SCH ×2 (09:26→17:21)
[2022-07-03] MEDS: FAMOTIDINE 20MG TABLET PO SCH ×2 (09:27→21:31)
[2022-07-03] MEDS: LOSARTAN POTASSIUM 100 MG TABLET PO SCH (09:30)
[2022-07-03] MEDS: HYDROCHLOROTHIAZIDE 25MG TABLET PO SCH (09:31)
[2022-07-03] MEDS: ASPIRIN 81MG TABLET PO SCH (09:54)
[2022-07-03 20:00] VITALS: BP 92/69
[2022-07-03] MEDS: ATORVASTATIN CALCIUM 10MG TABLET PO SCH (21:31)
[2022-07-04] MEDS: GABAPENTIN 300MG CAPSULE PO SCH ×3 (06:08→22:00)
[2022-07-04] MEDS: OXYCODONE HCL/ACETAMINOPHEN 5/325MG TABLET PO PRN (06:14)
[2022-07-04] MEDS: BLOOD SUGAR DIAGNOSTIC STRIP TEST SCH ×4 (06:34→22:24)
[2022-07-04 08:00] VITALS: BP 148/61
[2022-07-04] MEDS: ASPIRIN 81MG TABLET PO SCH (09:12)
[2022-07-04] MEDS: HYDROCHLOROTHIAZIDE 25MG TABLET PO SCH (09:13)
[2022-07-04] MEDS: LOSARTAN POTASSIUM 100 MG TABLET PO SCH (09:13)
[2022-07-04] MEDS: GLIPIZIDE 5MG TABLET PO SCH ×2 (09:13→17:33)
[2022-07-04] MEDS: FAMOTIDINE 20MG TABLET PO SCH ×2 (09:13→22:24)
[2022-07-04] MEDS: ERGOCALCIFEROL 50000UNITS CAPSULE PO SCH (14:11)
[2022-07-04 20:00] VITALS: BP 94/64
[2022-07-04 21:00] VITALS: BP 103/55
[2022-07-04] MEDS: ATORVASTATIN CALCIUM 10MG TABLET PO SCH (22:23)
[2022-07-05] MEDS: GABAPENTIN 300MG CAPSULE PO SCH ×3 (06:45→22:34)
[2022-07-05] MEDS: BLOOD SUGAR DIAGNOSTIC STRIP TEST SCH ×4 (07:00→20:46)
[2022-07-05 08:00] VITALS: BP 115/71
[2022-07-05] MEDS: FAMOTIDINE 20MG TABLET PO SCH ×2 (09:33→20:42)
[2022-07-05] MEDS: ASPIRIN 81MG TABLET PO SCH (09:33)
[2022-07-05] MEDS: GLIPIZIDE 5MG TABLET PO SCH ×2 (09:33→17:37)
[2022-07-05] MEDS: LOSARTAN POTASSIUM 100 MG TABLET PO SCH (09:34)
[2022-07-05] MEDS: HYDROCHLOROTHIAZIDE 25MG TABLET PO SCH (09:34)
[2022-07-05] MEDS: OXYCODONE HCL/ACETAMINOPHEN 5/325MG TABLET PO PRN ×2 (09:34→17:43)
[2022-07-05 19:41] VITALS: BP 99/50
[2022-07-05] MEDS: ATORVASTATIN CALCIUM 10MG TABLET PO SCH (20:42)
[2022-07-06] MEDS: GABAPENTIN 300MG CAPSULE PO SCH ×3 (05:42→20:49)
[2022-07-06] MEDS: BLOOD SUGAR DIAGNOSTIC STRIP TEST SCH ×4 (05:48→20:54)
[2022-07-06 06:18] LABS: BASOPHILS % 0.7 % (0.0-2.0); EOSINOPHILS % 2.8 % (0.0-5.0); HEMOGLOBIN. 13.3 g/dL (14.0-18.0); LYMPHOCYTES % 19.7 % (20.0-50.0); MEAN CORPUSCULAR VOLUME 91.2 fL (80.0-94.0); MEAN PLATELET VOLUME 7.6 fl (7.4-10.4); MONOCYTES % 14.7 % (2.0-8.0); NEUTROPHILS % 62.1 % (40.0-76.0); PLATELET 241 x1000/uL (130-400); RED BLOOD CELL COUNT 4.28 mill/uL (4.7-6.1); RED CELL DISTRIBUTION WIDTH 13.6 % (11.6-14.6)
[2022-07-06 07:48] LABS: CHLORIDE 103 mEq/L (98-107)
[2022-07-06 08:30] VITALS: BP 132/68
[2022-07-06] MEDS ORDERED: NALOXONE HCL 0.4MG/ML VIAL IV PRN (10:00)
[2022-07-06] MEDS: HYDROCHLOROTHIAZIDE 25MG TABLET PO SCH (10:33)
[2022-07-06] MEDS: GLIPIZIDE 5MG TABLET PO SCH ×2 (10:33→17:41)
[2022-07-06] MEDS: FAMOTIDINE 20MG TABLET PO SCH ×2 (10:33→20:48)
[2022-07-06] MEDS: ASPIRIN 81MG TABLET PO SCH (10:33)
[2022-07-06] MEDS: LOSARTAN POTASSIUM 100 MG TABLET PO SCH (10:33)
[2022-07-06 20:00] VITALS: BP 98/56
[2022-07-06] MEDS: ATORVASTATIN CALCIUM 10MG TABLET PO SCH (20:49)
[2022-07-07] MEDS: BLOOD SUGAR DIAGNOSTIC STRIP TEST SCH ×4 (05:45→21:00)
[2022-07-07] MEDS: GABAPENTIN 300MG CAPSULE PO SCH ×3 (05:47→22:00)
[2022-07-07 08:00] VITALS: BP 128/56
[2022-07-07] MEDS: ASPIRIN 81MG TABLET PO SCH (09:00)
[2022-07-07] MEDS: GLIPIZIDE 5MG TABLET PO SCH ×2 (09:19→17:00)
[2022-07-07] MEDS: LOSARTAN POTASSIUM 100 MG TABLET PO SCH (09:19)
[2022-07-07] MEDS: FAMOTIDINE 20MG TABLET PO SCH ×2 (09:19→21:00)
[2022-07-07] MEDS: HYDROCHLOROTHIAZIDE 25MG TABLET PO SCH (09:19)
[2022-07-07] MEDS: OXYCODONE HCL/ACETAMINOPHEN 5/325MG TABLET PO PRN (09:49)
[2022-07-07 19:40] VITALS: BP 95/59
[2022-07-07] MEDS: ATORVASTATIN CALCIUM 10MG TABLET PO SCH (21:00)
[2022-07-08] MEDS: GABAPENTIN 300MG CAPSULE PO SCH ×2 (06:37→13:20)
[2022-07-08] MEDS: BLOOD SUGAR DIAGNOSTIC STRIP TEST SCH ×3 (06:38→17:27)
[2022-07-08] MEDS: OXYCODONE HCL/ACETAMINOPHEN 5/325MG TABLET PO PRN ×2 (07:13→12:28)
[2022-07-08 08:00] VITALS: BP 98/67
[2022-07-08] MEDS: HYDROCHLOROTHIAZIDE 25MG TABLET PO SCH (09:00)
[2022-07-08] MEDS: LOSARTAN POTASSIUM 100 MG TABLET PO SCH (09:00)
[2022-07-08] MEDS: ASPIRIN 81MG TABLET PO SCH (10:35)
[2022-07-08] MEDS: GLIPIZIDE 5MG TABLET PO SCH ×2 (10:35→17:00)
[2022-07-08] MEDS: FAMOTIDINE 20MG TABLET PO SCH (10:35)
[2022-07-08 14:52] VITALS: BP 100/67
[2022-07-10] MEDS ORDERED: CYANOCOBALAMIN 1000MCG/ML VIAL IM SCH (09:00)
== END 2022-07-08 19:28 | DRG 563 ==
PROVIDERS: ADMIT Physical Medicine & Rehabilitation Spinal Cord Injury Medicine; ATTEND Internal Medicine
DX: S82.831A Other fracture of upper and lower end of right fibula, initial encounter for closed fracture (principal); S82.202A Unspecified fracture of shaft of left tibia, initial encounter for closed fracture; F03.93 Unspecified dementia, unspecified severity, with mood disturbance; I69.354 Hemiplegia and hemiparesis following cerebral infarction affecting left non-dominant side; Z68.41 Body mass index [BMI] 40.0-44.9, adult; E11.42 Type 2 diabetes mellitus with diabetic polyneuropathy; E55.9 Vitamin D deficiency, unspecified; E66.01 Morbid (severe) obesity due to excess calories; E78.5 Hyperlipidemia, unspecified; I10 Essential (primary) hypertension; I25.10 Atherosclerotic heart disease of native coronary artery without angina pectoris; I48.0 Paroxysmal atrial fibrillation; Z20.822 Contact with and (suspected) exposure to COVID-19; R53.81 Other malaise; K81.9 Cholecystitis, unspecified; W18.39XA Other fall on same level, initial encounter; I69.322 Dysarthria following cerebral infarction; Z79.82 Long term (current) use of aspirin; Z79.84 Long term (current) use of oral hypoglycemic drugs; Z82.49 Family history of ischemic heart disease and other diseases of the circulatory system; Z91.81 History of falling; Z79.899 Other long term (current) drug therapy; Y93.89 Activity, other specified; Y92.89 Other specified places as the place of occurrence of the external cause; Y99.8 Other external cause status
CPT/HCPCS: 36415; 80048; 80053; 82306; 82607; 82728; 82746; 82962; 83036; 83540; 83550; 84134; 84443; 85025; 87426; 92523; 92610; 93970; 97110; 97162; 97166; 97530; 97535; 97542; J3420

== ENCOUNTER 2023-03-06 06:43 | Emergency (ER) | payer MEDICARE, MEDICAID ==
[~2023-03-06] VITALS: Ht 188 cm; Wt 118.0 kg
[~2023-03-06 06:43] MED LIST changes: +ASPI-1497 MT; +DILT60TA35 PO; +FURO20TA4 PO; +HYDR-459 PO; +METO100T16 PO; +PIOG30TA10 PO; +POLY15DR31 EACHEYE; +RIVA20TA PO; +SERT20OR6 PO; +T4 PO; +ZOLP10TA2 PO
[2023-03-06 06:57] VITALS: O2SAT 98
[2023-03-06] MEDS ORDERED: SODIUM CHLORIDE 0.9% 1,000 ML IV ONE (07:45)
[2023-03-06 08:06] LABS: BASOPHILS % 0.9 % (0.0-2.0); EOSINOPHILS % 2.9 % (0.0-5.0); HEMATOCRIT. 43.2 % (42.0-52.0); HEMOGLOBIN. 14.3 g/dL (14.0-18.0); LYMPHOCYTES % 23.6 % (20.0-50.0); MEAN CORPUSCULAR HEMOGLOBIN 30.4 pg (28.0-32.0); MEAN CORPUSCULAR VOLUME 91.9 fL (80.0-94.0); MEAN PLATELET VOLUME 8.2 fl (7.4-10.4); MONOCYTES % 11.7 % (2.0-8.0); NEUTROPHILS % 60.9 % (40.0-76.0); PLATELET 260 x1000/uL (130-400); RED CELL DISTRIBUTION WIDTH 14.7 % (11.6-14.6); WHITE BLOOD COUNT 5.2 x1000/uL (4.5-11.0)
[2023-03-06 09:24] LABS: CHLORIDE 106 mEq/L (98-107); INDEX HEMOLYSI 1 (1-3); INDEX ICTERIC 1 (1-4); INDEX LIPEMIC 1 (1-3); POTASSIUM 3.1 mEq/L (3.5-5.1); SODIUM 136 mEq/L (136-145)
[2023-03-06 09:42] LABS: ALANINE AMINOTRANSFERASE 33 IU/L (13-61); ALBUMIN 2.9 g/dL (3.4-5.0); ASPARTATE AMINOTRANSFERASE 33 IU/L (15-37); BILIRUBIN TOTAL 0.3 mg/dL (0.1-1.0); CARBON DIOXIDE 27 mEq/L (21-32); CREATININE 0.8 mg/dL (0.6-1.3); GLUCOSE 91 mg/dL (70-105); NT PRO B-TYPE NATRIURETIC PEP 141 pg/mL (5-125); PROTEIN TOTAL 7.6 g/dL (6.0-8.3); TROPONIN I HIGH SENSITIVITY 8 ng/L (<78); UREA NITROGEN BLOOD 15 mg/dL (7-21)
[2023-03-06] MEDS ORDERED: POTASSIUM CHLORIDE 20MEQ TABLET SR PO ONE (10:15)
[2023-03-06 10:48] LABS: CLARITY URINE CLEAR (CLEAR); COLOR URINE YELLOW (YELLOW); GLUCOSE URINE NEGATIVE (NEGATIVE); KETONES URINE NEGATIVE (NEGATIVE); LEUKOCYTE ESTERASE URINE 2+ (NEGATIVE); NITRITE URINE NEGATIVE (NEGATIVE); OCCULT BLOOD URINE NEGATIVE (NEGATIVE); PH URINE 7.5 (4.5-8.0); PROTEIN URINE NEGATIVE (NEGATIVE); SPECIFIC GRAVITY URINE 1.011 (1.005-1.030)
[2023-03-06 11:01] LABS: SQUAMOUS EPITHELIAL CELL URINE RARE /lpf (RARE/1+)
[2023-03-06] MEDS ORDERED: POTA-189 MT (11:03)
[2023-03-06] MEDS ORDERED: CEPH500T MT (11:03)
[2023-03-06 11:04] LABS: BACTERIA URINE TRACE; RBC URINE 0-2 /hpf (0-2)
[2023-03-06 12:29] VITALS: BP 124/71; PULSE 70; RESP 16; TEMP 97.8
== END 2023-03-06 12:33 | disposition home or self-care (01) ==
LOC: ER 06:45
DX: E87.6 Hypokalemia (principal); N39.0 Urinary tract infection, site not specified; I10 Essential (primary) hypertension; E78.00 Pure hypercholesterolemia, unspecified; E11.9 Type 2 diabetes mellitus without complications; R51.9 Headache, unspecified; Z20.822 Contact with and (suspected) exposure to COVID-19; Z86.73 Personal history of transient ischemic attack (TIA), and cerebral infarction without residual deficits; Z79.899 Other long term (current) drug therapy
CPT/HCPCS: 99285; 96360; 70450; 71045; 87426; 80053; 81003; 83880; 84443; 85025; 84484; 36415; 93005; J7030; C9803

== ENCOUNTER 2023-04-02 07:53 | Inpatient (IN) | payer MEDICARE, MEDICAID ==
[~2023-04-02] VITALS: Ht 188 cm; Wt 136.1 kg
[~2023-04-02 07:53] MED LIST changes: +CEPH500T MT; +POTA-189 MT
[2023-04-02 09:13] LABS: BASOPHILS % 0.6 % (0.0-2.0); HEMATOCRIT. 40.7 % (42.0-52.0); HEMOGLOBIN. 13.4 g/dL (14.0-18.0); LYMPHOCYTES % 12.8 % (20.0-50.0); MEAN CORPUSCULAR HEMOGLOBIN 29.7 pg (28.0-32.0); MEAN CORPUSCULAR VOLUME 90.2 fL (80.0-94.0); MEAN PLATELET VOLUME 7.5 fl (7.4-10.4); MONOCYTES % 9.7 % (2.0-8.0); NEUTROPHILS % 75.9 % (40.0-76.0); PLATELET 250 x1000/uL (130-400); RED BLOOD CELL COUNT 4.52 mill/uL (4.7-6.1); RED CELL DISTRIBUTION WIDTH 14.6 % (11.6-14.6); WHITE BLOOD COUNT 7.1 x1000/uL (4.5-11.0)
[2023-04-02 09:17] LABS: CHLORIDE 102 mEq/L (98-107); INDEX HEMOLYSI 1 (1-3); INDEX ICTERIC 1 (1-4); INDEX LIPEMIC 1 (1-3); POTASSIUM 3.1 mEq/L (3.5-5.1); SODIUM 137 mEq/L (136-145)
[2023-04-02 09:24] LABS: ALANINE AMINOTRANSFERASE 31 IU/L (13-61); ALBUMIN 3.1 g/dL (3.4-5.0); ASPARTATE AMINOTRANSFERASE 34 IU/L (15-37); BILIRUBIN TOTAL 0.7 mg/dL (0.1-1.0); CALCIUM 9.3 mg/dL (8.5-10.1); CARBON DIOXIDE 29 mEq/L (21-32); CREATININE 0.8 mg/dL (0.6-1.3); GLUCOSE 130 mg/dL (70-105); UREA NITROGEN BLOOD 9 mg/dL (7-21)
[2023-04-02] MEDS ORDERED: HYDROCODONE/ACETAMINOPHEN 5/325MG TABLET PO ONE (11:30)
[2023-04-02] MEDS ORDERED: POTASSIUM CHLORIDE 20MEQ/PACKET PO ONE (11:30)
[2023-04-02] MEDS ORDERED: ONDANSETRON HCL 4MG/2ML INJ IV PRN (16:00)
[2023-04-02] MEDS ORDERED: MEDICATION NOT ON FORMULARY EA (Zolpidem Tartrate (Ambien) 10 MG) PO PRN (16:00)
[2023-04-02] MEDS ORDERED: GUAIFENESIN 200MG/10ML SUGAR FREE UDC PO PRN (16:00)
[2023-04-02] MEDS ORDERED: ACETAMINOPHEN WITH CODEINE 300/60MG TABLET PO PRN (16:00)
[2023-04-02] MEDS ORDERED: IPRATROPIUM/ALBUTEROL 0.5-3(2.5)MG/3ML NEB HHN PRN (16:00)
[2023-04-02] MEDS ORDERED: DOCUSATE SODIUM 100MG CAPSULE PO PRN (16:00)
[2023-04-02] MEDS ORDERED: CLONIDINE 0.1MG TABLET PO PRN (16:00)
[2023-04-02] MEDS ORDERED: NALOXONE HCL 0.4MG/ML VIAL IV PRN (16:30)
[2023-04-02] MEDS ORDERED: MEDICATION NOT ON FORMULARY EA (Gabapentin 600 MG) PO SCH (17:00)
[2023-04-02 17:32] LABS: CLARITY URINE CLEAR (CLEAR); COLOR URINE DARK YELLOW (YELLOW); GLUCOSE URINE NEGATIVE (NEGATIVE); KETONES URINE NEGATIVE (NEGATIVE); LEUKOCYTE ESTERASE URINE 2+ (NEGATIVE); NITRITE URINE NEGATIVE (NEGATIVE); OCCULT BLOOD URINE NEGATIVE (NEGATIVE); PH URINE 7.5 (4.5-8.0); PROTEIN URINE TRACE (NEGATIVE); SPECIFIC GRAVITY URINE 1.024 (1.005-1.030)
[2023-04-02 17:34] LABS: YEAST URINE NONE SEEN
[2023-04-02 17:52] LABS: BACTERIA URINE 1+; RBC URINE 0-2 /hpf (0-2); SQUAMOUS EPITHELIAL CELL URINE RARE /lpf (RARE/1+)
[2023-04-02] MEDS ORDERED: DEXTROSE 50% WATER 50ML SYRINGE IV PRN (18:15)
[2023-04-02] MEDS: INSULIN LISPRO 100 UNITS/ML SUBCUT SCH ×2 (18:20→21:00)
[2023-04-02] MEDS: BLOOD SUGAR DIAGNOSTIC STRIP TEST SCH ×2 (19:48→21:00)
[2023-04-02] MEDS: GABAPENTIN 300MG CAPSULE PO SCH (20:09)
[2023-04-02] MEDS: RIVAROXABAN 20 MG TABLET PO SCH (20:09)
[2023-04-02] MEDS: ASPIRIN 81MG EC TABLET PO SCH (20:09)
[2023-04-02] MEDS: ATORVASTATIN CALCIUM 10MG TABLET PO SCH (21:59)
[2023-04-02] MEDS: ZOLPIDEM TARTRATE 5MG TABLET PO PRN (22:16)
[2023-04-02 23:31] VITALS: BP 122/65; PULSE 71; RESP 16; TEMP 98.1
[2023-04-03] VITALS: BP 139/86; PULSE 84; RESP 20; TEMP 98.5
[2023-04-03 00:01] LABS: CREATINE KINASE MB FRACTION 1.1 ng/mL (0.5-3.6)
[2023-04-03 00:19] LABS: TROPONIN I HIGH SENSITIVITY 92 ng/L (<78)
[2023-04-03 04:00] VITALS: BP 139/75; PULSE 81; RESP 20; TEMP 98.5
[2023-04-03 06:27] LABS: CHLORIDE 101 mEq/L (98-107); INDEX HEMOLYSI 2 (1-3); INDEX ICTERIC 1 (1-4); INDEX LIPEMIC 1 (1-3); POTASSIUM 3.6 mEq/L (3.5-5.1); SODIUM 137 mEq/L (136-145)
[2023-04-03 06:29] LABS: CALCIUM 8.6 mg/dL (8.5-10.1)
[2023-04-03 06:37] LABS: CARBON DIOXIDE 31 mEq/L (21-32); CREATINE KINASE MB FRACTION < 1.0 ng/mL (0.5-3.6); CREATININE 0.8 mg/dL (0.6-1.3); GLUCOSE 97 mg/dL (70-105); PHOSPHORUS 2.9 mg/dL (2.5-4.9); TROPONIN I HIGH SENSITIVITY 58 ng/L (<78); UREA NITROGEN BLOOD 9 mg/dL (7-21)
[2023-04-03] MEDS: BLOOD SUGAR DIAGNOSTIC STRIP TEST SCH ×4 (07:16→21:58)
[2023-04-03] MEDS: INSULIN LISPRO 100 UNITS/ML SUBCUT SCH ×4 (07:17→21:58)
[2023-04-03 07:57] LABS: HEMATOCRIT 41.8 % (42.0-52.0); HEMOGLOBIN 13.6 g/dL (14.0-18.0); MEAN CORPUSCULAR HEMOGLOBIN 29.7 pg (28.0-32.0); MEAN CORPUSCULAR HGB CONC 32.5 g/dL (31.0-37.0); MEAN CORPUSCULAR VOLUME 91.4 fL (80.0-94.0); PLATELET 266 x1000/uL (130-400); RED BLOOD CELL COUNT 4.57 mill/uL (4.7-6.1); RED CELL DISTRIBUTION WIDTH 14.9 % (11.6-14.6); WHITE BLOOD COUNT 6.8 x1000/uL (4.5-11.0)
[2023-04-03 08:00] VITALS: BP 177/98; PULSE 81; RESP 20; TEMP 97.7
[2023-04-03] MEDS ORDERED: MEDICATION NOT ON FORMULARY EA (Losartan/Hydrochlorothiazide (Losartan-Hctz 100-25 Mg Ta PO SCH (09:00)
[2023-04-03] MEDS: ASPIRIN 81MG EC TABLET PO SCH (09:54)
[2023-04-03] MEDS: SERTRALINE HCL 25MG TABLET PO SCH (09:55)
[2023-04-03] MEDS: LOSARTAN 100 MG TABLET PO SCH (09:55)
[2023-04-03] MEDS: POTASSIUM CHLORIDE 10MEQ TABLET SR PO SCH (09:55)
[2023-04-03] MEDS: HYDROCHLOROTHIAZIDE 25MG TABLET PO SCH (09:56)
[2023-04-03] MEDS: FUROSEMIDE 20MG TABLET PO SCH (09:56)
[2023-04-03] MEDS: GABAPENTIN 300MG CAPSULE PO SCH ×3 (09:56→18:23)
[2023-04-03 12:06] VITALS: BP 164/89; PULSE 86; RESP 20; TEMP 98.6
[2023-04-03 16:00] VITALS: BP 149/83; PULSE 87; RESP 21; TEMP 97.8
[2023-04-03] MEDS: SUCRALFATE 1G TABLET PO SCH (18:24)
[2023-04-03] MEDS: RIVAROXABAN 20 MG TABLET PO SCH (18:24)
[2023-04-03 20:00] VITALS: BP 136/90; PULSE 90; RESP 18; TEMP 98.7
[2023-04-03] MEDS: ATORVASTATIN CALCIUM 10MG TABLET PO SCH (21:58)
[2023-04-04] VITALS: BP 126/99; PULSE 89; RESP 20; TEMP 98.9
[2023-04-04] MEDS: ZOLPIDEM TARTRATE 5MG TABLET PO PRN ×2 (02:31→23:19)
[2023-04-04 04:00] VITALS: BP 136/9; PULSE 89; RESP 20; TEMP 97.8
[2023-04-04] MEDS: ACETAMINOPHEN 325MG TABLET PO PRN ×2 (05:39→11:11)
[2023-04-04] MEDS: SUCRALFATE 1G TABLET PO SCH ×2 (06:18→17:52)
[2023-04-04] MEDS: BLOOD SUGAR DIAGNOSTIC STRIP TEST SCH ×4 (06:41→21:58)
[2023-04-04] MEDS: INSULIN LISPRO 100 UNITS/ML SUBCUT SCH ×4 (07:40→22:05)
[2023-04-04 08:00] VITALS: BP 144/76; PULSE 85; RESP 20; TEMP 98.1
[2023-04-04] MEDS: LOSARTAN 100 MG TABLET PO SCH (11:08)
[2023-04-04] MEDS: POTASSIUM CHLORIDE 10MEQ TABLET SR PO SCH (11:09)
[2023-04-04] MEDS: ASPIRIN 81MG EC TABLET PO SCH (11:09)
[2023-04-04] MEDS: HYDROCHLOROTHIAZIDE 25MG TABLET PO SCH (11:09)
[2023-04-04] MEDS: SERTRALINE HCL 25MG TABLET PO SCH (11:10)
[2023-04-04] MEDS: FUROSEMIDE 20MG TABLET PO SCH (11:10)
[2023-04-04] MEDS: GABAPENTIN 300MG CAPSULE PO SCH ×3 (11:10→17:52)
[2023-04-04 12:00] VITALS: BP 141/82; PULSE 91; RESP 20; TEMP 98.3
[2023-04-04 16:00] VITALS: BP 120/73; PULSE 88; RESP 20; TEMP 97.3
[2023-04-04] MEDS ORDERED: HYDR25TA PO (17:05)
[2023-04-04] MEDS ORDERED: ATOR10TA69 PO (17:05)
[2023-04-04] MEDS ORDERED: GLIP5TAB12 PO ×2 (17:05)
[2023-04-04] MEDS ORDERED: MULT-624 PO (17:05)
[2023-04-04] MEDS ORDERED: FAMO20TA8 PO (17:05)
[2023-04-04] MEDS ORDERED: MULT-230 PO (17:05)
[2023-04-04] MEDS ORDERED: CHOL100046 PO (17:05)
[2023-04-04] MEDS ORDERED: GABA-532 PO (17:05)
[2023-04-04] MEDS: RIVAROXABAN 20 MG TABLET PO SCH (17:52)
[2023-04-04 20:00] VITALS: BP 138/87; PULSE 91; RESP 18; TEMP 96.9
[2023-04-04] MEDS: ATORVASTATIN CALCIUM 10MG TABLET PO SCH (21:59)
[2023-04-05] VITALS: BP 130/75; PULSE 65; RESP 20; TEMP 98.6
[2023-04-05 04:00] VITALS: BP 149/82; PULSE 88; RESP 19; TEMP 99.4
[2023-04-05] MEDS: BLOOD SUGAR DIAGNOSTIC STRIP TEST SCH ×4 (07:35→21:00)
[2023-04-05] MEDS: SUCRALFATE 1G TABLET PO SCH ×2 (07:35→17:46)
[2023-04-05] MEDS: INSULIN LISPRO 100 UNITS/ML SUBCUT SCH ×4 (07:50→22:13)
[2023-04-05 08:00] VITALS: BP 121/93; PULSE 79; RESP 18; TEMP 96.3
[2023-04-05] MEDS: GABAPENTIN 300MG CAPSULE PO SCH ×3 (09:05→17:48)
[2023-04-05] MEDS: HYDROCHLOROTHIAZIDE 25MG TABLET PO SCH (09:05)
[2023-04-05] MEDS: ASPIRIN 81MG EC TABLET PO SCH (09:05)
[2023-04-05] MEDS: SERTRALINE HCL 25MG TABLET PO SCH (09:05)
[2023-04-05] MEDS: POTASSIUM CHLORIDE 10MEQ TABLET SR PO SCH (09:05)
[2023-04-05] MEDS: FUROSEMIDE 20MG TABLET PO SCH (09:06)
[2023-04-05] MEDS: LOSARTAN 100 MG TABLET PO SCH (09:06)
[2023-04-05 12:00] VITALS: BP 133/93; PULSE 83; RESP 19; TEMP 96.7
[2023-04-05 16:00] VITALS: BP 124/83; PULSE 84; RESP 18; TEMP 96.8
[2023-04-05] MEDS: RIVAROXABAN 20 MG TABLET PO SCH (17:48)
[2023-04-05 20:00] VITALS: BP 132/91; PULSE 62; RESP 19; TEMP 97.5
[2023-04-05] MEDS: ZOLPIDEM TARTRATE 5MG TABLET PO PRN (21:54)
[2023-04-05] MEDS: ATORVASTATIN CALCIUM 10MG TABLET PO SCH (21:54)
[2023-04-06] VITALS: BP 143/84; PULSE 85; RESP 20; TEMP 97.1
[2023-04-06 04:00] VITALS: BP 126/71; PULSE 76; RESP 19; TEMP 97.1
[2023-04-06] MEDS: SUCRALFATE 1G TABLET PO SCH (06:22)
[2023-04-06] MEDS: BLOOD SUGAR DIAGNOSTIC STRIP TEST SCH (06:22)
[2023-04-06] MEDS: INSULIN LISPRO 100 UNITS/ML SUBCUT SCH (07:46)
[2023-04-06 08:00] VITALS: BP 131/83; PULSE 87; RESP 18; TEMP 97.3
[2023-04-06] MEDS: HYDROCHLOROTHIAZIDE 25MG TABLET PO SCH (09:11)
[2023-04-06] MEDS: LOSARTAN 100 MG TABLET PO SCH (09:11)
[2023-04-06] MEDS: FUROSEMIDE 20MG TABLET PO SCH (09:12)
[2023-04-06] MEDS: GABAPENTIN 300MG CAPSULE PO SCH ×2 (09:12→12:46)
[2023-04-06] MEDS: SERTRALINE HCL 25MG TABLET PO SCH (09:12)
[2023-04-06] MEDS: POTASSIUM CHLORIDE 10MEQ TABLET SR PO SCH (09:17)
[2023-04-06] MEDS: ASPIRIN 81MG EC TABLET PO SCH (09:17)
[2023-04-06] MEDS ORDERED: LOSA100T33 PO (10:44)
[2023-04-06] MEDS ORDERED: GABA-532 PO (10:44)
[2023-04-06] MEDS ORDERED: ASPI-1406 PO (10:44)
[2023-04-06] MEDS ORDERED: ATOR10TA PO (10:44)
[2023-04-06] MEDS ORDERED: HYDR25TA PO (10:44)
[2023-04-06] MEDS ORDERED: ZOLP5TAB2 PO (10:44)
[2023-04-06] MEDS ORDERED: SERT25TA74 PO (10:44)
[2023-04-06] MEDS ORDERED: POTA-189 PO (10:44)
[2023-04-06] MEDS ORDERED: RIVA20TA PO (10:44)
[2023-04-06] MEDS ORDERED: FURO20TA4 PO (10:44)
[2023-04-06 11:14] VITALS: BP 131/83; PULSE 89; TEMP 97.1; O2SAT 100
[2023-04-06 12:00] VITALS: BP 113/63; PULSE 98; RESP 18; TEMP 97.5
== END 2023-04-06 14:50 | disposition home health service (06) | DRG 103 ==
LOC: ER 07:53 → EDBEDREQ 14:13 → 6EST 21:03
PROVIDERS: ADMIT Internal Medicine; ATTEND Internal Medicine
DX: G44.209 Tension-type headache, unspecified, not intractable (principal); I69.351 Hemiplegia and hemiparesis following cerebral infarction affecting right dominant side; E11.42 Type 2 diabetes mellitus with diabetic polyneuropathy; E87.6 Hypokalemia; I48.0 Paroxysmal atrial fibrillation; I44.0 Atrioventricular block, first degree; E78.00 Pure hypercholesterolemia, unspecified; F32.A Depression, unspecified; I10 Essential (primary) hypertension; I25.10 Atherosclerotic heart disease of native coronary artery without angina pectoris; H54.7 Unspecified visual loss; H91.91 Unspecified hearing loss, right ear; I69.322 Dysarthria following cerebral infarction; Z79.01 Long term (current) use of anticoagulants; Z79.82 Long term (current) use of aspirin; Z79.4 Long term (current) use of insulin; Z79.84 Long term (current) use of oral hypoglycemic drugs; Z79.899 Other long term (current) drug therapy; Z82.49 Family history of ischemic heart disease and other diseases of the circulatory system
CPT/HCPCS: 36415; 80048; 80053; 81003; 82040; 82553; 82962; 83036; 83735; 84100; 84484; 85025; 85027; 92610; 93005; 97162; 97166; 97530; 97535; 99285; J1815

== ENCOUNTER 2023-04-24 02:17 | Emergency (ER) | payer MEDICARE, MEDICAID ==
[~2023-04-24] VITALS: Ht 182.9 cm; Wt 150.0 kg
[~2023-04-24 02:17] MED LIST changes: +ASPI-1406 PO; -ASPI-1497 MT; +ATOR10TA PO; -CEPH500T MT; +CHOL100046 PO; -DILT60TA35 PO; +FAMO20TA8 PO; -GABA-290 PO; +GABA-532 PO; -GLIP5TAB12 MT; +GLIP5TAB22 PO; -HYDR-459 PO; +HYDR25TA PO; -LEVO-65 MT; +LOSA100T33 PO; -LOSA1TAB37 PO; -METO100T16 PO; -MOBI7 MT; +MULT-230 PO; +MULT-624 PO; -OMEP20CA14 PO; -PIOG30TA10 PO; -PIOG30TA70 PO; -POLY15DR31 EACHEYE; -POTA-189 MT; +POTA-189 PO; -SERT20OR6 PO; +SERT25TA74 PO; -T4 PO; -ZOLP10TA2 PO; +ZOLP5TAB2 PO
[2023-04-24 02:19] VITALS: BP 134/78; PULSE 110; RESP 18; TEMP 97.8; O2SAT 97
[2023-04-24] MEDS ORDERED: TETANUS, DIPHTHERIA, PERTUSSIS VAC/PF 0.5ML (>10YR OLD) IM ONE (02:30)
[2023-04-24] MEDS ORDERED: IBUP-2029 MT (03:38)
[2023-04-24] MEDS ORDERED: HYDROCODONE/ACETAMINOPHEN 10/325MG TABLET PO NR (03:45)
== END 2023-04-24 09:52 | disposition home or self-care (01) ==
LOC: ER 02:17
DX: S82.401A Unspecified fracture of shaft of right fibula, initial encounter for closed fracture (principal); I10 Essential (primary) hypertension; E78.00 Pure hypercholesterolemia, unspecified; E11.9 Type 2 diabetes mellitus without complications; W01.0XXA Fall on same level from slipping, tripping and stumbling without subsequent striking against object, initial encounter; Y93.89 Activity, other specified; Y92.89 Other specified places as the place of occurrence of the external cause; Y99.8 Other external cause status; Z79.899 Other long term (current) drug therapy; Z86.73 Personal history of transient ischemic attack (TIA), and cerebral infarction without residual deficits
CPT/HCPCS: 29505; 73610; 73630; 90471; 90715; 99284

== ENCOUNTER 2023-07-16 08:55 | Emergency (ER) | payer MEDICARE, MEDICAID ==
[~2023-07-16] VITALS: Ht 182.9 cm; Wt 137.0 kg
[~2023-07-16 08:55] MED LIST changes: +IBUP-2029 MT
[2023-07-16 09:05] VITALS: O2SAT 97
[2023-07-16] MEDS ORDERED: BACITRACIN ZINC OINT UDPKT TOP ONE (09:30)
[2023-07-16 13:06] VITALS: BP 160/94; PULSE 77; RESP 16; TEMP 98.7
== END 2023-07-16 13:45 | disposition home or self-care (01) ==
LOC: ER 08:55
DX: S80.821A Blister (nonthermal), right lower leg, initial encounter (principal); E11.9 Type 2 diabetes mellitus without complications; E78.00 Pure hypercholesterolemia, unspecified; I10 Essential (primary) hypertension; Z86.73 Personal history of transient ischemic attack (TIA), and cerebral infarction without residual deficits; Z79.899 Other long term (current) drug therapy; X58.XXXA Exposure to other specified factors, initial encounter; Y93.89 Activity, other specified; Y92.89 Other specified places as the place of occurrence of the external cause; Y99.8 Other external cause status
CPT/HCPCS: 99283